=== PATIENT | male | born 1940 | race Caucasian/White ===

== ENCOUNTER 2017-08-21 13:01 | Emergency (ER) | payer OTHER ==
[2017-08-21] MEDS ORDERED: CARDIZEM IV ONE ×2 (13:54→14:17)
[2017-08-21] MEDS ORDERED: CARDIZEM/D5W 100MG/100ML 100 MG/100 ML BAG IV SCH (14:00)
--- NOTE | 2017-08-21 14:32 | XRay Report ---
AP CHEST: HISTORY: Dysrhythmia No comparison. There is mild cardiomegaly, mild pulmonary venous congestion and trace bilateral pleural effusions. No consolidation or pneumothorax. IMPRESSION: Mild CHF.
[2017-08-21 14:38] LABS: Basophils % (Auto) 0.8 % (0.0-1.8); Eosinophils % (Auto) 2.4 % (0.0-4.3); Hematocrit 41.6 % (35.5-45.6); Hemoglobin 14.2 gm/dl (11.8-15.2); Mean Corpuscular HGB Conc 34 % (32-34); Mean Corpuscular Hemoglobin 34 pg (28-32); Mean Corpuscular Volume 98 fl (84-94); Platelet Count 192 K/mm3 (140-440); Red Blood Count 4.23 M/mm3 (3.65-5.03); Red Cell Distribution Width 14.4 % (13.2-15.2); White Blood Count 7.7 K/mm3 (4.5-11.0)
[2017-08-21] MEDS ORDERED: CARDIZEM PO ONE ×2 (14:40→21:00)
[2017-08-21 14:50] LABS: Albumin 3.5 g/dL (3.9-5); Bilirubin,Direct 0.2 mg/dL (0-0.2); Bilirubin,Total 1.2 mg/dL (0.1-1.2); Total Protein 7.1 g/dL (6.3-8.2)
[2017-08-21 15:00] LABS: INR 1.08 (0.87-1.13)
[2017-08-21 15:01] LABS: Creatine Kinase MB 2.3 ng/mL (0.0-4.0); Partial Thromboplastin Time 31.6 Sec. (24.2-36.6)
[2017-08-21 15:02] LABS: Anion Gap 22 mmol/L; BUN/Creatinine Ratio 15; Blood Urea Nitrogen 16 mg/dL (9-20); Calcium 8.1 mg/dL (8.4-10.2); Carbon Dioxide 20 mmol/L (22-30); Chloride 100.7 mmol/L (98-107); Creatine Kinase 125 units/L (55-170); Glucose 100 mg/dL (75-100); Potassium 4.2 mmol/L (3.6-5.0); Sodium 138 mmol/L (137-145)
[2017-08-21] MEDS ORDERED: COREG PO ONE (16:55)
[2017-08-21] MEDS ORDERED: SYNTHROID PO SCH ×2 (17:00)
--- NOTE | 2017-08-21 18:40 | History and Physical Report ---
History of Present Illness Chief complaint: Heart beating fast History of present illness: 76 YO male with No PMH presents to ED for evaluation. Pt states that he has experienced shortness of breath for the past 3 days as well as intermittent palpitations in his chest. Pt seen and evaluated in ED and found to have Atrial fib. Pt treated with antiarrythmic therapy with resolution of symtpoms. Pt treated with therapeutic anticoagulation. Pt medically optimized and back to usual state of health. Pt discharged home and instructed to f/u pcp 1wk, and cardiology 3-5 days for f/u care, and further evaluation. Past History Past Medical History: No medical history, other (reviewed) Past Surgical History: No surgical history, Other (reviewed) Social history: Family history: no significant family history (reviewed) Medications and Allergies Allergies Allergy/AdvReac Type Severity Reaction Status Date / Time No Known Allergies Allergy Unverified 08/21/17 13:53 Home Medications Medication Instructions Recorded Confirmed Last Taken Type Apixaban [Eliquis] 5 mg PO DAILY #74 tablet 08/21/17 Unknown Rx Aspirin 325 mg PO DAILY 08/21/17 08/21/17 08/20/17 History 325 Diltiazem [CarDIZEM] 30 mg PO Q6HR #120 tablet 08/21/17 Unknown Rx Levothyroxine Sodium [Synthroid] 75 mcg PO DAILY #30 tablet 08/21/17 Unknown Rx Levothyroxine Sodium [Synthroid] 175 mcg PO QDAY #30 tab 08/21/17 Unknown Rx Active Meds: Active Medications Apixaban (Eliquis) 10 mg PO Q12HR [facility] PRN Reason: Protocol Levothyroxine Sodium (Synthroid) 112 mcg PO DAILY@0600 [facility] Last Admin: 08/21/17 17:26 Dose: Not Given Levothyroxine Sodium (Synthroid) 25 mcg PO DAILY@0600 [facility] Last Admin: 08/21/17 17:26 Dose: Not Given Review of Systems Constitutional: no weight loss, no weight gain, no fever, no chills Ears, nose, mouth and throat: no ear pain, no ear discharge, no tinnitis, no decreased hearing, no nose pain Cardiovascular: palpitations, no chest pain, no orthopnea, no syncope, no lightheadedness Respiratory: no cough, no cough with sputum, no excessive sputum, no hemoptysis Gastrointestinal: no nausea, no vomiting, no diarrhea, no constipation Genitourinary Male: no hematuria, no flank pain, no discharge, no urinary frequency Rectal: no pain, no incontinence, no bleeding Musculoskeletal: no neck stiffness, no neck pain, no shooting arm pain, no arm numbness/tingling, no low back pain Integumentary: no rash, no pruritis, no redness, no sores, no wounds Neurological: no paralysis, no weakness, no parathesias, no numbness, no seizures Psychiatric: no anxiety, no memory loss, no change in sleep habits, no sleep disturbances, no insomnia Endocrine: no cold intolerance, no heat intolerance, no polyphagia, no excessive thirst, no polydipsia, no polyuria Hematologic/Lymphatic: no easy bruising, no easy bleeding Allergic/Immunologic: no urticaria, no allergic rhinitis, no wheezing Exam - Constitutional Vitals: Temp Pulse Resp BP Pulse Ox 98.8 F 117 H 22 122/95 92 08/21/17 13:15 08/21/17 15:02 08/21/17 14:31 08/21/17 14:31 08/21/17 14:15 General appearance: Present: no acute distress, well-nourished - EENT Eyes: Present: PERRL ENT: hearing intact, clear oral mucosa - Neck Neck: Present: supple, normal ROM - Respiratory Respiratory effort: normal Respiratory: bilateral: CTA - Cardiovascular Heart Sounds: Present: S1 & S2. Absent: rub, click - Extremities Extremities: pulses symmetrical, No edema Peripheral Pulses: within normal limits - Abdominal General gastrointestinal: Present: soft, non-tender, non-distended, normal bowel sounds Male genitourinary: Present: normal - Integumentary Integumentary: Present: clear, warm, dry - Musculoskeletal Musculoskeletal: gait normal, strength equal bilaterally - Psychiatric Psychiatric: appropriate mood/affect, intact judgment & insight - Neurologic Neurologic: CNII-XII intact, moves all extremities Results - Labs CBC & Chem 7: 08/21/17 14:16 08/21/17 14:16 Labs: Abnormal lab results 08/21/17 08/21/17 08/21/17 Range/Units 14:16 14:16 14:16 MCV 98 H (84-94) fl MCH 34 H (28-32) pg Lymph % (Auto) 44.0 H (13.4-35.0) % [place] % (Auto) 9.4 H (0.0-7.3) % D-Dimer (0-234) ng/mlDDU Carbon Dioxide 20 L (22-30) mmol/L Calcium 8.1 L (8.4-10.2) mg/dL Albumin (3.9-5) g/dL TSH 18.880 H (0.270-4.200) mlU/mL 08/21/17 08/21/17 Range/Units 14:16 14:16 MCV (84-94) fl MCH (28-32) pg Lymph % (Auto) (13.4-35.0) % [place] % (Auto) (0.0-7.3) % D-Dimer 1859.17 H (0-234) ng/mlDDU Carbon Dioxide (22-30) mmol/L Calcium (8.4-10.2) mg/dL Albumin 3.5 L (3.9-5) g/dL TSH (0.270-4.200) mlU/mL Assessment and Plan - Patient Problems (1) Atrial fibrillation with RVR Status: Acute Plan to address problem: Pt initiated on therapeutic anticoagulation, rate control therapy with resolution of symptoms. Pt discharged home and instructed to f/u with cardiology 3-5 days for f/u care, and f/u pcp 1wk, (2) Hypothyroidism Status: Acute Qualifiers: Hypothyroidism type: unspecified Qualified Code(s): E03.9 - Hypothyroidism , unspecified Plan to address problem: Pt initiated on thyroid replacement therapy.
[2017-08-21] MEDS ORDERED: LASIX IV ONE (18:59)
--- NOTE | 2017-08-21 19:00 | Emergency Department Report ---
ED General Adult HPI - General Chief complaint: Arrhythmia/Palpitations Stated complaint: CHEST PAIN Time Seen by Provider: 08/21/17 13:44 Source: patient, family, EMS Mode of arrival: Stretcher - History of Present Illness Initial comments: The patient explains to me for the last 3 days he's been having dyspnea, dyspnea on exertion and feeling of Afrin in his chest intermittently. At the time of my evaluation he denies any chest pain. He states that he has had no S3 of any problems with his heart. Specifically he denies a history of rhythm problems. He has not experienced palpitations and is not aware of his atrial fibrillation with rapid ventricular response. History was obtained by me in [place]ian. -: days(s) Location: chest Radiation: non-radiation (anterior substernal) Quality: other (could not describe) Consistency: intermittent, now resolved Improves with: none Worsens with: none Associated Symptoms: shortness of breath Treatments Prior to Arrival: none - Related Data Home Medications Medication Instructions Recorded Confirmed Last Taken Aspirin 325 mg PO DAILY 08/21/17 08/21/17 08/20/17 325 Previous Rx's Medication Instructions Recorded Last Taken Type Levothyroxine Sodium [Synthroid] 175 mcg PO QDAY #30 tab 08/21/17 Unknown Rx Allergies Allergy/AdvReac Type Severity Reaction Status Date / Time No Known Allergies Allergy Unverified 08/21/17 13:53 ED Review of Systems ROS: Stated complaint: CHEST PAIN Other details as noted in HPI Constitutional: denies: chills, fever Eyes: denies: eye pain, eye discharge, vision change ENT: denies: ear pain, throat pain Respiratory: shortness of breath. denies: cough, wheezing Cardiovascular: chest pain. denies: palpitations Endocrine: no symptoms reported Gastrointestinal: denies: abdominal pain, nausea, diarrhea Genitourinary: denies: urgency, dysuria Musculoskeletal: denies: back pain, joint swelling, arthralgia Skin: denies: rash, lesions Neurological: denies: headache, weakness, paresthesias Psychiatric: denies: anxiety, depression Hematological/Lymphatic: denies: easy bleeding, easy bruising ED Past Medical Hx - Past Medical History Previous Medical History?: No - Surgical History Past Surgical History?: No - Social History Smoking Status: Never Smoker Substance Use Type: None - Medications Home Medications: Home Medications Medication Instructions Recorded Confirmed Last Taken Type Aspirin 325 mg PO DAILY 08/21/17 08/21/17 08/20/17 History 325 Levothyroxine Sodium [Synthroid] 175 mcg PO QDAY #30 tab 08/21/17 Unknown Rx ED Physical Exam - General General appearance: alert, in no apparent distress - Head Head exam: Present: atraumatic, normocephalic - Eye Eye exam: Present: normal appearance - ENT ENT exam: Present: mucous membranes moist - Neck Neck exam: Present: normal inspection - Respiratory Respiratory exam: Present: normal lung sounds bilaterally. Absent: respiratory distress - Cardiovascular Cardiovascular Exam: Present: tachycardia, irregular rhythm, S3. Absent: systolic murmur, diastolic murmur, rubs, gallop - GI/Abdominal GI/Abdominal exam: Present: soft, normal bowel sounds. Absent: distended, tenderness, guarding, rebound - Rectal Rectal exam: Present: deferred - Extremities Exam Extremities exam: Present: normal inspection - Back Exam Back exam: Present: normal inspection - Neurological Exam Neurological exam: Present: alert, oriented X3, CN II-XII intact. Absent: motor sensory deficit - Psychiatric Psychiatric exam: Present: normal affect, normal mood - Skin Skin exam: Present: warm, dry, intact, normal color. Absent: rash ED Course Vital Signs 08/21/17 08/21/17 08/21/17 13:15 13:45 14:01 Temperature 98.8 F Pulse Rate 119 H 128 H Respiratory 19 23 Rate Blood Pressure 126/93 122/95 O2 Sat by Pulse 96 96 Oximetry 08/21/17 08/21/17 08/21/17 14:15 14:18 14:31 Temperature Pulse Rate 87 122 H 92 H Respiratory 31 H 22 Rate Blood Pressure 122/95 122/95 O2 Sat by Pulse 92 Oximetry 08/21/17 15:02 Temperature Pulse Rate 117 H Respiratory Rate Blood Pressure O2 Sat by Pulse Oximetry - Reevaluation(s) Reevaluation #1: Patient was given a first dose of diltiazem and placed on a drip. He was referred to the hospitalist service for further care and evaluation. 08/21/17 18:58 08/21/17 19:01 Lasix, aspirin, CTA was ordered by the hospitalist for an elevated d-dimer. ED Medical Decision Making - Lab Data Result diagrams: 08/21/17 14:16 08/21/17 14:16 Laboratory Results - last 24 hr 08/21/17 08/21/17 08/21/17 14:16 14:16 14:16 WBC 7.7 RBC 4.23 Hgb 14.2 Hct 41.6 MCV 98 H MCH 34 H MCHC 34 RDW 14.4 Plt Count 192 Lymph % (Auto) 44.0 H [place] % (Auto) 9.4 H Eos % (Auto) 2.4 Baso % (Auto) 0.8 Lymph # 3.4 [place] # 0.7 Eos # 0.2 Baso # 0.1 Seg Neutrophils % 43.4 Seg Neutrophils # 3.4 PT 14.6 INR 1.08 APTT 31.6 D-Dimer Sodium 138 Potassium 4.2 Chloride 100.7 Carbon Dioxide 20 L Anion Gap 22 BUN 16 Creatinine 1.1 Estimated GFR > 60 BUN/Creatinine Ratio 15 Glucose 100 Calcium 8.1 L Magnesium Total Bilirubin Direct Bilirubin Indirect Bilirubin AST ALT Alkaline Phosphatase Total Creatine Kinase 125 CK-MB (CK-2) 2.3 CK-MB (CK-2) Rel Index 1.8 Troponin T < 0.010 Total Protein Albumin Albumin/Globulin Ratio TSH 08/21/17 08/21/17 08/21/17 14:16 14:16 14:16 WBC RBC Hgb Hct MCV MCH MCHC RDW Plt Count Lymph % (Auto) [place] % (Auto) Eos % (Auto) Baso % (Auto) Lymph # [place] # Eos # Baso # Seg Neutrophils % Seg Neutrophils # PT INR APTT D-Dimer Sodium Potassium Chloride Carbon Dioxide Anion Gap BUN Creatinine Estimated GFR BUN/Creatinine Ratio Glucose Calcium Magnesium 2.00 Total Bilirubin 1.20 Direct Bilirubin 0.2 Indirect Bilirubin 1.0 AST 20 ALT 15 Alkaline Phosphatase 63 Total Creatine Kinase CK-MB (CK-2) CK-MB (CK-2) Rel Index Troponin T Total Protein 7.1 Albumin 3.5 L Albumin/Globulin Ratio 1.0 TSH 18.880 H 08/21/17 08/21/17 14:16 16:41 WBC RBC Hgb Hct MCV MCH MCHC RDW Plt Count Lymph % (Auto) [place] % (Auto) Eos % (Auto) Baso % (Auto) Lymph # [place] # Eos # Baso # Seg Neutrophils % Seg Neutrophils # PT INR APTT D-Dimer 1859.17 H Sodium Potassium Chloride Carbon Dioxide Anion Gap BUN Creatinine Estimated GFR BUN/Creatinine Ratio Glucose Calcium Magnesium Total Bilirubin Direct Bilirubin Indirect Bilirubin AST ALT Alkaline Phosphatase Total Creatine Kinase CK-MB (CK-2) CK-MB (CK-2) Rel Index Troponin T < 0.010 Total Protein Albumin Albumin/Globulin Ratio TSH - EKG Data -: EKG Interpreted by Me Rate: tachycardia - EKG Data Interpretation: other (the patient has a left bundle branch block with atrial fibrillation and rapid ventricular response.) - Radiology Data interpreted by me: Chest x-ray shows cardiomegaly with CHF. Critical care attestation.: If time is entered above; I have spent that time in minutes in the direct care of this critically ill patient, excluding procedure time. ED Disposition Clinical Impression: Atrial fibrillation with RVR Congestive heart failure Qualifiers: Congestive heart failure type: combined Congestive heart failure chronicity: acute Qualified Code(s): I50.41 - Acute combined systolic (congestive) and diastolic (congestive) heart failure Hypothyroidism Qualifiers: Hypothyroidism type: unspecified Qualified Code(s): E03.9 - Hypothyroidism, unspecified Disposition: 09 OP ADMIT IP TO THIS HOSP Is pt being admited?: Yes Does the pt Need Aspirin: Yes Condition: Stable Prescriptions: Levothyroxine Sodium [Synthroid] 175 mcg PO QDAY #30 tab Referrals: PRIMARY CARE, [Primary Care Provider] - 3-5 Days Time of Disposition: 19:03
[2017-08-21] MEDS ORDERED: BABY ASPIRIN PO ONE (19:04)
--- NOTE | 2017-08-21 20:13 | Cat Scan Report ---
FINAL REPORT PROCEDURE: CT ANGIO CHEST TECHNIQUE: Computerized tomographic angiography of the chest was performed after the IV injection of iodinated nonionic contrast including image processing. The image data was postprocessed using 2-dimensional multiplanar reformatted (MPR) and 3-dimensional (MIP and/or volume rendered) techniques. HISTORY: dypsnea COMPARISON: No prior studies are available for comparison. FINDINGS: Heart and pericardium: Heart is mildly enlarged. No pericardial effusion is seen. Thoracic aorta: Normal caliber. Limited evaluation of the lumen. Pulmonary vasculature: Normal. Lymph nodes: No enlarged thoracic lymph nodes. Lungs: Patchy bilateral ground-glass airspace opacities are noted the and increased diffuse reticular markings. Findings may be related to pulmonary edema. Correlate for any possible infectious process. Pleural space: Bilateral moderate layering pleural effusions, right greater than left. Musculoskeletal structures: Multilevel thoracic spine degenerative disc changes. Upper abdominal structures: Cholelithiasis. IMPRESSION: No evidence of pulmonary emboli. Findings above can be seen with congestive heart failure with pulmonary edema and pleural effusions. Correlate for any underlying infectious process
[2017-08-21] MEDS ORDERED: BABY ASPIRIN ONE (21:14)
[2017-08-21] MEDS ORDERED: LASIX ONE (21:14)
[2017-08-21] MEDS ORDERED: ELIQUIS PO SCH (22:00)
[2017-08-21 23:13] VITALS: BP 108/89
[2017-08-22] MEDS ORDERED: SYNTHROID 112 MCG, SYNTHROID 25 MCG PO SCH (16:56)
== END 2017-08-21 23:13 | disposition home or self-care (01) ==
LOC: ED 13:01
DX: I50.41 Acute combined systolic (congestive) and diastolic (congestive) heart failure (principal); E03.9 Hypothyroidism, unspecified
CPT/HCPCS: 36415; 71010; 71275; 80048; 80074; 82550; 82553; 83735; 84443; 84484; 85025; 85379; 85610; 85730; 93005; 93010; 96374; 96375; 99285; J1940; Q9967